=== PATIENT | male | born 1935 | race Caucasian/White ===

== ENCOUNTER 2018-11-14 21:04 | Emergency (ER) | payer OTHER ==
[2018-11-14 21:17] VITALS: BP 141/103; PULSE 72; BMI 31.3
--- NOTE | 2018-11-14 21:34 | PDOC ---
History of Present Illness - General Chief Complaint: Weakness Stated Complaint: WEAK, SOB Time Seen by Provider: 11/14/18 21:06 - History of Present Illness Initial Comments: This 83-year-old man with a history of ASD, CAD, pacemaker, lymphoma, BPH, GERD , presents with progressive shortness of breath, weakness/fatigue for the last few weeks. Patient is scheduled for TAVR at [facility] on November 21. He was recently started on furosemide for symptoms of CHF. According to the patient and his daughter, he has had progressive dyspnea on exertion and fatigue. He also relates a recent (last several days) pain in his right shoulder that is triggered by exertion and is resolved with rest. Medications as noted below ALLERGY: Penicillin Past medical history: As noted above, also history of hip fracture Past History - Past Medical History Allergies/Adverse Reactions: Allergies Allergy/AdvReac Type Severity Reaction Status Date / Time Penicillins Allergy Verified 11/14/18 21:05 Home Medications: Ambulatory Orders Aspirin [ASA -] 81 mg PO DAILY 11/14/18 Clopidogrel Bisulfate [Clopidogrel] 75 mg PO DAILY 11/14/18 Docusate Sodium [Colace] 100 mg PO TID 11/14/18 Furosemide [Lasix] 20 mg PO DAILY 11/14/18 Lansoprazole [Prevacid -] 30 mg PO TID 11/14/18 Metoprolol Succinate [Toprol Xl -] 50 mg PO DAILY 11/14/18 Metoprolol Succinate [Toprol Xl] 100 mg PO HS 11/14/18 Pantoprazole Sodium [Protonix] 40 mg PO DAILY 11/14/18 Ranitidine [Zantac -] 150 mg PO DAILY 11/14/18 Rosuvastatin [Crestor -] 20 mg PO HS 11/14/18 Tamsulosin HCl [Flomax] 0.4 mg PO DAILY 11/14/18 traZODone HCL [Trazodone HCl] 50 mg PO PRN 11/14/18 Anemia: No Asthma: No Cancer: Yes (LYMPHOMA) Cardiac Disorders: Yes CVA: No COPD: No CHF: Yes DVT: No Dementia: No Diabetes: No Dialysis: No GI Disorders: Yes (GERD) Disorders: Yes (BPH) HTN: Yes Hypercholesterolemia: Yes Kidney Stones: No Liver Disease: No Psychiatric Problems: No Seizures: No Thyroid Disease: No Lung CA: No - Surgical History Cardiac Surgery: Yes (TRIPLE BYPASS, STENT X2 (2003, 2007)) - Psycho Social/Smoking Cessation Hx Smoking History: Former smoker Have you smoked in the past 12 months: No If you are a former smoker, when did you quit?: 1973 Information on smoking cessation initiated: No Hx Alcohol Use: No Drug/Substance Use Hx: No Review of Systems - Review of Systems Able to Perform ROS?: Yes Comments:: 12 point review of systems is negative except for what is noted in the history of present illness *Physical Exam - Vital Signs Last Vital Signs Temp Pulse Resp BP Pulse Ox 72 20 141/103 H 94 L 11/14/18 21:05 11/14/18 21:05 11/14/18 21:05 11/14/18 21:05 - Physical Exam Comments: GENERAL: Elderly man, alert and oriented 3, in no acute distress HEAD: Normal with no signs of trauma. EYES: PERRLA, EOMI, sclera anicteric, conjunctiva clear. ENT: Ears normal, nares patent, oropharynx clear without exudates. Dry mucous membranes. NECK: Normal range of motion, supple without lymphadenopathy, JVD, or masses. LUNGS: Breath sounds equal, inspiratory crackles at bilateral bases. No wheezes HEART:Regular rate and rhythm, normal S1 and S2 faint systolic murmur at left sternal border ABDOMEN:.normal bowel sounds No guarding,tenderness or rebound.No masses ;mild distention EXTREMITIES: Normal range of motion, 2+ pitting edema to mid calf. No clubbing or cyanosis. No erythema, or tenderness. NEUROLOGICAL: Cranial nerves II through XII grossly intact. Normal speech. No focal neurological deficits. Twelve-lead electrocardiogram is performed: Paced rhythm with left bundle branch block at 66 bpm. no previous for comparison Portable chest x-ray performed. Preliminary interpretation by me: No rotation present; poor inspiration. Cardiomegaly with no evidence of infiltrate or effusion. Minimal evidence of vascular congestion bilaterally ED Treatment Course - LABORATORY CBC & Chemistry Diagram: 11/14/18 21:24 11/14/18 21:24 - RADIOLOGY Radiology Studies Ordered: Category Date Time Status BUTCH [CHEST X-RAY PORTABLE*] [RAD] Stat Radiology 11/14/18 21:22 Ordered Medical Decision Making - Medical Decision Making This 83-year-old man with known critical aortic stenosis, scheduled to have TAVR in one week, presents with progressive fatigue as well as his exertional dyspnea. Although he has no new chest pain, he does have some right shoulder discomfort with exertion, resolving with rest. Exam as noted. Although symptoms of fatigue and dyspnea may be directly related to progressive , it is possible there are reversible factors (such as electrolyte abnormalities) but could be contributing to the symptoms. Laboratory evaluation of CBC, chemistry profile, INR and troponin performed. The only significant abnormality seen is BUN of 54 with a creatinine of 1.9( baseline reportedly 2030/1.4). Troponin is 0.4 Possibility of significant prerenal azotemia/dehydration secondary to diuretic is present. Gentle rehydration (100 mL/hour normal saline IV) along with serial troponin levels to fully rule out ongoing myocardial ischemia would require admission. Case discussed with ODETTE Monsalve. Although patient was initially scheduled to be admitted for full evaluation of the significant change from baseline of the BUN and creatinine, after full discussion between the patient's daughter (who is a nurse practitioner, on staff here) and Ms. Sotomayor, admission was canceled with patient to be discharged in the company of his daughter with follow-up with his water commissioner tomorrow. Patient will return to ER or see his water commissioner if he has further progression of his symptoms *DC/Admit/Observation/Transfer Diagnosis at time of Disposition: Aortic stenosis Qualifiers: Cardiac valve disease etiology: etiology unspecified Qualified Code(s): I35.0 - Nonrheumatic aortic (valve) stenosis - Discharge Dispostion Disposition: HOME Condition at time of disposition: Stable Decision to Admit order: No - Referrals - Patient Instructions Additional Instructions: followup with your water commissioner tomorrow return to ER as needed for worsening symptoms - Post Discharge Activity
[2018-11-14 21:41] LABS: HEMATOCRIT 38.1 % (35.4-49); HEMOGLOBIN 12.6 GM/dl (11.7-16.9); MCHC 33.1 g/dl (32.0-35.9); MEAN CELL VOLUME 99.8 fl (80-96); MEAN PLT VOLUME 8.8 fl (7.5-11.1); PLATELET COUNT 181 K/MM3 (134-434); RBC 3.82 M/mm3 (4.00-5.60); WHITE BLOOD COUNT 7.1 K/mm3 (4.0-10.8)
[2018-11-14 21:51] LABS: ALBUMIN 3.8 g/dl (3.4-5.0); BILIRUBIN,TOTAL 1.3 mg/dl (0.2-1); CALCIUM 9.1 mg/dl (8.5-10); CREATININE 1.9 mg/dl (0.55-1.3); POTASSIUM 4.3 mmol/L (3.5-5.1); TOT PROT 6.5 g/dl (6.4-8.2)
[2018-11-14 21:57] LABS: INR 1.54 (0.82-1.09); PROTHROMBIN TIME (PATIENT) 17.1 SEC (10.2-13.0)
[2018-11-14 22:09] LABS: ANISOCYTOSIS 1+
[2018-11-14 22:10] LABS: MACROCYTOSIS 1+; PLATELET ESTIMATE ADEQUATE
[2018-11-14] MEDS ORDERED: SODIUM CHLORIDE 1,000 ML IV SCH (22:15)
--- NOTE | 2018-11-15 10:42 | EKG ---
Test Reason : Blood Pressure : / mmHG Vent. Rate : 066 BPM Atrial Rate : 066 BPM P-R Int : 254 ms QRS Dur : 206 ms QT Int : 516 ms P-R-T Axes : 017 -58 104 degrees QTc Int : 540 ms AV dual-paced rhythm with prolonged AV conduction WITH FREQUENT PREMATURE VENTRICULAR COMPLEXES ABNORMAL ECG NO PREVIOUS ECGS AVAILABLE Confirmed by REED OCONNOR MD ([id number]) on 11/15/2018 10:42:01 AM Referred By: JOSE C Confirmed By:REED OCONNOR MD
== END 2018-11-14 23:37 | disposition home or self-care (01) ==
LOC: FER 21:04 → FM/S 23:20 → UNDOADMIN 23:20
DX: I35.0 Nonrheumatic aortic (valve) stenosis (principal); Q21.1 Atrial septal defect; I25.10 Atherosclerotic heart disease of native coronary artery without angina pectoris; Z95.0 Presence of cardiac pacemaker; N40.0 Benign prostatic hyperplasia without lower urinary tract symptoms; K21.9 Gastro-esophageal reflux disease without esophagitis; C85.90 Non-Hodgkin lymphoma, unspecified, unspecified site; E78.00 Pure hypercholesterolemia, unspecified; I10 Essential (primary) hypertension
CPT/HCPCS: 36415; 71045-TC-FY; 80053; 82550; 84484; 85025; 85610; 85730; 93005; 99282-25; J7030

== ENCOUNTER 2020-08-20 14:15 | Emergency (ER) | payer OTHER ==
[2020-08-20 15:05] VITALS: TEMP 98.3; BMI 27.4
[2020-08-20] MEDS ORDERED: morphine SULFATE 4 MG/ML VIAL IVPUSH ONE (16:30)
[2020-08-20] MEDS ORDERED: morphine SULFATE 4 MG/ML VIAL ONE (16:50)
[2020-08-20 17:04] LABS: BASO % 0.3 % (0-2.0); HEMATOCRIT 40.9 % (35.4-49); HEMOGLOBIN 13.8 GM/dL (11.7-16.9); LYMPH % 12.8 % (8-40); MCH 32.9 pg (25.7-33.7); MCHC 33.8 g/dl (32.0-35.9); MEAN CELL VOLUME 97.3 fl (80-96); MEAN PLT VOLUME 8.1 fl (7.5-11.1); MONO % 8.9 % (3.8-10.2); PLATELET COUNT 156 10^3/uL (134-434); RDW 14.1 % (11.9-15.9)
[2020-08-20 17:16] LABS: INR 1.13 (0.83-1.09); PROTHROMBIN TIME (PATIENT) 13.6 SEC (9.7-13.0)
[2020-08-20 17:18] LABS: ACTIVATED PTT 26.3 SECONDS (25.2-36.5)
[2020-08-20 17:24] LABS: CHLORIDE 105 mmol/L (98-107); SODIUM 141 mmol/L (136-145)
[2020-08-20 17:25] LABS: CALCIUM 8.8 mg/dL (8.5-10.1)
[2020-08-20 17:26] LABS: ALBUMIN 3.8 g/dl (3.4-5.0); ANION GAP 6 MMOL/L (8-16); BLOOD UREA NITROGEN 26.8 mg/dL (7-18); CO2 30 mmol/L (21-32); GLUCOSE,RANDOM 93 mg/dL (74-106)
[2020-08-20 17:29] LABS: CREATININE 1.1 mg/dL (0.55-1.3); SGOT/AST 21 U/L (15-37); SGPT/ALT 28 U/L (13-61)
[2020-08-20 17:31] LABS: BILIRUBIN,TOTAL 0.8 mg/dL (0.2-1)
[2020-08-20 17:32] LABS: ALK PHOS 59 U/L (45-117)
[2020-08-20 20:11] VITALS: BP 154/78; PULSE 66
[2020-08-21] MEDS ORDERED: MORPHINE SULFATE 2 MG/ML VIAL ONE (02:09)
[2020-08-21] MEDS ORDERED: morphine CARPU-JECT 2 MG/1 ML DISP.SYRIN IVPUSH ONE (02:09)
== END 2020-08-21 03:02 | disposition short-term general hospital (02) ==
LOC: JER 14:15
PROC: 3E033NZ Introduction of Analgesics, Hypnotics, Sedatives into Peripheral Vein, Percutaneous Approach (ICD-10-PCS; principal; 2020-08-20)
PROC: 3E033GC Introduction of Other Therapeutic Substance into Peripheral Vein, Percutaneous Approach (ICD-10-PCS; 2020-08-20)
DX: S72.91XA Unspecified fracture of right femur, initial encounter for closed fracture (principal)
CPT/HCPCS: 36415; 70450-TC; 71045-TC-FY; 72125-TC; 72170-TC-FY; 80053; 84484; 85025; 85610; 85730; 86850; 86900; 86901; 93005; 93010; 99285-25; C9803; U0003; U0005